=== PATIENT | male | born 1985 | race Two or more races ===

== ENCOUNTER 2025-02-18 12:44 | Emergency (ER) | payer SELFPAY ==
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
[2025-02-18 13:27] VITALS: BP 138/87; PULSE 66; RESP 18; TEMP 36.8; O2SAT 96; BMI 32.5
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
== END 2025-02-18 14:35 | disposition home or self-care (01) ==
PROVIDERS: Emergency Provider Family Medicine; PCP Family Medicine
DX: S13.4XXA Sprain of ligaments of cervical spine, initial encounter (principal); S09.90XA Unspecified injury of head, initial encounter; V49.9XXA Car occupant (driver) (passenger) injured in unspecified traffic accident, initial encounter
CPT/HCPCS: 70450; 72125; 99284